=== PATIENT | female | born 1975 | race Caucasian/White ===

== ENCOUNTER 2024-08-13 06:23 | Day surgery (SDC) | payer BC, SELFPAY | END 2024-08-13 16:05 | disposition home or self-care (01) | LOC: GI 06:23 | PROVIDERS: ATTENDING PHYSICIAN Internal Medicine Gastroenterology | DX: K57.30 Diverticulosis of large intestine without perforation or abscess without bleeding (principal); D12.8 Benign neoplasm of rectum; D50.0 Iron deficiency anemia secondary to blood loss (chronic); K92.1 Melena; K64.8 Other hemorrhoids; K44.9 Diaphragmatic hernia without obstruction or gangrene; R12 Heartburn | CPT/HCPCS: 45380; 43239; 88305 ==

== ENCOUNTER → 2024-11-07 07:57 | Outpatient (REF) | payer BC, SELFPAY | LOC: RAD 07:57 | PROVIDERS: ATTENDING PHYSICIAN Internal Medicine Gastroenterology; FAMILY PHYSICIAN Internal Medicine | DX: R10.11 Right upper quadrant pain (principal) | CPT/HCPCS: 78227; A9537; J2805 ==

== ENCOUNTER 2025-05-14 12:38 | Inpatient (IN) | payer BC, SELFPAY ==
[2025-05-13 14:43] VITALS: BP 151/78
--- NOTE | 2025-05-13 15:34 | ED.GENMED ---
History of Present Illness
General
Chief Complaint: Abdominal Pain
Source: patient
Exam Limitations: none
Time Seen by Provider: 05/13/25 15:25
History of Present Illness
History of Present Illness:
49-year-old female severe epigastric pain severe esophageal/epigastric pain with swallowing. Weight loss. Some chest pain at times. Some difficulty swallowing at times. Had a CT of her abdomen and pelvis and head last week that was negative.
Has had ongoing GI issues for a while but nothing to this degree and this feels different.
Past History
Past History
ED Past Medical History: Psychiatric (Anxiety) and Other (Tachycardia)
Review of Systems
Review of Systems
Constitutional: Reports weight loss; Denies fever
Respiratory: Denies trouble breathing
Cardiac: Reports chest pain
Phy Exam
Physical Exam
Physical Exam:
GENERAL: Alert and oriented in no apparent distress
EYE: Orbits normal.
NECK: Supple, no significant adenopathy.
ENT: Pharynx without erythema
CARDIAC: Regular rate and rhythm without any obvious murmurs.
LUNGS: Clear breath sounds,normal
ABDOMEN: Soft, mild epigastric tenderness. No rebound or guarding no mass or hernia. Thin and cachectic.
NEUROLOGICAL: Alert and oriented , grossly non-focal
SKIN: Warm and dry, no rash or lesion, no discoloration, skin intact.
MUSCULOSKELETAL: No edema,no deformity.Good color
PSYCH: Cooperative but anxious and upset
Course
Orders/Labs/Results
Orders:
Orders
05/13/25 14:33
Electrocardiogram (*1) Urgent
Reason for Study: Bradycardia / Tachycardia
EKG- Treatment ONCE
05/13/25 14:55
Test Result ONCE
05/13/25 15:33
IV Insert/Care/Rem.- Treatment PRN
0.9% Sodium Chloride 500 ml [Nss] 500 ml IV BOLUS
05/13/25 15:46
Complete Blood Count/With Diff Urgent
Comprehensive Metabolic Panel Urgent
HCG, Serum Qualitative Screen Urgent
Comment: Notify provider if positive test present
Lipase Urgent
TSH Urgent
Comment: ADD ON
Troponin I Urgent
05/13/25 16:00
Acetaminophen [Tylenol] 650 mg PO Q4HPRN PRN
Mag Hydrox/Al Hydrox/Simeth [Maalox] 30 ml PO Q6HPRN PRN
05/13/25 16:25
Osmolality, Random Urine Urgent
Date Specimen was Collected: 05/13/25
Time Specimen was Collected: 14:55
Comment: ADD ON
Urinalysis Reflex To Culture Urgent
Date Specimen was Collected: 05/13/25
Time Specimen was Collected: 14:55
Urine Microscopic Reflex Cult Urgent
Urine Sodium Urgent
Date Specimen was Collected: 05/13/25
Time Specimen was Collected: 14:55
Comment: ADD ON
05/13/25 16:32
Pantoprazole [Protonix IV] 40 mg IV NOW STA
05/13/25 17:07
Admit/Transfer Patient As Directed
Co-Sign Provider:
Level of Care: Observation services
Assign to:: Medical/Surgical
Physician / Group: Micheal Hager
Diagnosis: abdominal pain
Code Status As Directed
Resuscitation Status: Full Code
PRN Pain Medication Management As Directed
May give lesser potent ordered pain med per pt: Yes
preference::
Protocol:: Medication orders for pain may be administered in a
manner that supports deferring to patient preference
when the pt is:
- Requesting an ordered lesser potent pain medication.
Least to most potent pain medications are defined
as: acetaminophen < NSAID < tramadol < opioids
(morphine, oxycodone, hydromorphone).
- Requesting a lesser dose of the same medication IF
ORDERED.
- Requesting a less intrusive route of administration
if both routes are prescribed by the provider (PO <
IV).
05/13/25 18:00
Enoxaparin Sodium [Lovenox] 40 mg SC QPM
05/13/25 18:22
GASTROINTESTINAL CONSULT Routine
Consulting Provider: Nataliia Storey
Was physician already notified: Yes
Activity As Directed
Activity Level: Ambulate
Intake/ Output As Directed
Frequency: Per unit guidelines
Vital Signs As Directed
Frequency: Per unit guidelines
Weight As Directed
Frequency: Once
Comment: on admission
DX Deep Vein Thrombosis Video Routine
05/13/25 20:00
Sucralfate [Carafate] 1 gram PO BID
Verapamil [Isoptin] 40 mg PO BID
05/14/25 Breakfast
Regular
At Your Request: Full Participation
Basic Metabolic Panel IN AM
05/14/25 08:00
Escitalopram Oxalate [Lexapro] 5 mg PO DAILY
Abnormal Lab Results
05/13/25 05/13/25
15:46 16:25
MCH 32.0 H pg
(27.0-31.0)
Absolute Neuts (auto) 7.8 H 10^3/uL
(1.4-6.5)
Absolute Lymphs (auto) 1.0 L 10^3/uL
(1.2-3.4)
Absolute Monos (auto) 0.7 H 10^3/uL
(0.1-0.6)
Neutrophils % 81.1 H %
(42.2-75.2)
Lymphocytes % 10.4 L %
(20.5-51.1)
Sodium 128 L mmol/L
(135-145)
Chloride 96 L mmol/L
(98-107)
Creatinine 0.5 L mg/dL
(0.6-1.0)
Urine Ketones 3+ A
(Negative)
Ur Occult Blood Reflex 2+ A
(Negative)
Urine Bacteria (Reflex) Few A
(Negative)
Urine Osmolality 89 L mOsm/kg
(300-900)
Urine Sodium 8 L mmol/L
(30-90)
05/13/25 15:46
05/13/25 15:46
Vital Signs
Initial and Last Documented VS:
Initial Vital Signs
Temp Pulse Resp BP Pulse Ox
98.7 F 78 18 151/78 99
05/13/25 14:43 05/13/25 14:43 05/13/25 14:43 05/13/25 14:43 05/13/25 14:43
Last Documented Vital Signs
Temp Pulse Resp BP Pulse Ox
98.2 F 73 16 143/87 100
05/13/25 18:26 05/13/25 19:38 05/13/25 18:26 05/13/25 19:38 05/13/25 18:26
MDM/Problems Addressed
Differential Diagnosis Includes:
Patient describing epigastric pain esophageal like pain. Highly doubt cardiac although will check EKG and troponin. CT scan of the last week was unremarkable. No need for emergent radiologic testing. HIDA scan last year was unremarkable.
Patient is clearly not comfortable going home. I will discuss with hospitalist and GI with plans to admit for further workup.
*Pulse Oximetry
SaO2: 99
Oxygen Mode of Delivery: Room air
Patient hypoxic: no
*EKG
Interpreted by ED Provider?: Yes
Interpretation: normal
Comparison EKG: no comparison EKG present
Heart Rate: 67
Rate: normal
Rhythm: sinus
[place]: normal axis
Interval: normal interval
QRS Pattern: normal QRS
Ischemia: no ischemia
*Critical Care Note
Total Time (30-74mins, 75-104mins- exclusive of procedures): Not Applicable
Update Note
Update Note:
Mild hyponatremia. Labs are stable otherwise. Etiology of patient's symptoms not definitive at this time. Would suspect gastritis ulcer or reflux. Patient is very frustrated and not comfortable going home for outpatient workup at this time.
Discussed with GI and hospitalist
ED Attending Note
-
Portions of this chart may have been created with voice recognition software.� Occasional wrong word or��sound alike� substitutions may have occurred due to the inherent limitations of voice recognition software.
Discharge Plan
Departure
Patient Disposition: Admit
Date of Disposition: 05/13/25
Time of Disposition: 16:32
Presentation/result/management discussed w/ accepting MD/DO: gi
Discharge Problem:
Progressive epigastric pain/weight loss
Interventions
Interventions:
*Risk Screen - Suicide Last Done: 05/13/25 14:43
*Neglect/Abuse Screening Last Done: 05/13/25 14:43
*Nursing Disposition Last Done: 05/13/25 18:30
MX-Rxpxfc-Qitwcnppxn Assessment Last Done: 05/13/25 15:45
Discharge Date and Time
Discharge Date/Time: 05/13/25 18:30
[2025-05-13] MEDS: NSS 500 IV (15:44)
[2025-05-13 15:52] LABS: Hematocrit 40.1 % (37.0-47.0); Hemoglobin 14.0 g/dL (12.0-16.0); Mean Corp Hgb Conc. 34.9 g/dL (33.0-37.0); Mean Corpuscular Volume 91.6 fL (81.0-99.0); Nucleated Red Blood Cells % 0 %; Platelet Count 213 10^3/uL (130-400); Red Cell Dist. Width 11.8 % (11.5-14.5)
[2025-05-13 16:07] LABS: HCG, Serum Qualitative Screen Negative
[2025-05-13 16:16] LABS: Troponin I < 0.012 ng/ml
[2025-05-13 16:23] LABS: ALT (SGPT) 20 U/L (0-35); AST (SGOT) 20 U/L (14-36); Albumin 4.6 g/dl (3.5-5.0); Alkaline Phosphatase 58 U/L (38-126); Blood Urea Nitrogen 8 mg/dl (7-17); Calcium 9.4 mg/dl (8.4-10.2); Carbon Dioxide 24 mmol/L (22-30); Chloride 96 mmol/L (98-107); Glucose 95 mg/dl (70-99); Lipase 99 U/L (23-300); Potassium 3.9 mmol/L (3.5-5.1); Sodium 128 mmol/L (135-145); Total Protein 7.7 g/dl (6.3-8.2); eGFR > 60.00
--- NOTE | 2025-05-13 16:34 | HPS.HSE ---
Family Physician
-
Family Physician: Jia Mancini
Chief Complaint
-
severe epigastric pain
History of Present Illness
Patient is a 49-year-old female with past medical history significant for rheumatoid arthritis, esophageal dysphagia, hiatal hernia, GERD, iron deficiency anemia, tachycardia and Hx bladder cancer who presented to [facility] ED for evaluation of severe
epigastric pain that radiates to both side under ribs, feeling of fullness and burning. She reports that she was seen in [address] last week with no significant findings (patient presented CT head and CT Abd/pel reports with no significant
findings). She stated there has been no improvement and symptoms have gradually worsened and she sees GI here at [place] so elected to come for evaluation because GI out patient workup appoints are too far out. Symptoms started around
05/04/25-05/05/25. She reports a 7 pound weight loss in the past week. PO intake of meals has been minimal does report an increase in fluids as tolerated. She reports intermittent tachycardia and palpitations. Denies any fever, chills, cough,
shortness of breath, nausea, vomiting, constipation, diarrhea or urinary symptoms.
Medical History
Past Medical History
Past Medical History: Reports Other
Additional Past Medical History:
rheumatoid arthritis
esophageal dysphagia
hiatal hernia
GERD
tachycardia
depression
iron deficiency anemia
Hx bladder cancer
Past Surgical History: Reports Other
Additional Past Surgical History:
bladder cancer tumor extraction
Social History
Tobacco: Non-smoker
Alcohol: None
Drug: None
Personal:
Living: With Family
Employment: Employed
Family History
Family History: Other (Father: esophagitis bladder and prostate cancer )
Allergies / Home Medications
Allergies reflects when Allergies were last updated in [employer].
Home Medications with original date entered in [employer]
Allergy/Medication List:
Allergies
Allergy/AdvReac Type Severity Reaction Status Date / Time
Sulfa (Sulfonamide Allergy Unknown Verified 05/13/25 14:43
Antibiotics)
Home Medications
escitalopram oxalate 5 mg tablet (Lexapro) 5 mg PO DAILY 05/13/25
sucralfate 1 gram tablet (Carafate) 1 g PO BID 05/13/25
verapamil 40 mg tablet 40 mg PO BID 05/13/25
Review of Systems
-
History Source: Patient
Constitutional: Reports Weight Loss (unintentional 7 pounds in 1 week ); Denies Fever or Chills
EENT: Denies Sore Throat
Respiratory: Denies Cough, Hemoptysis or Trouble Breathing
Cardiac: Reports Palpitations; Denies Chest Pain, Diaphoresis or Syncope
Abdomen/GI: Reports Abdominal Pain; Denies Nausea, Vomiting, Diarrhea or Constipated
: Denies Dysuria or Frequency
Musculoskeletal: Denies Joint Pain or Joint Swelling
Skin: Denies Rash
Neurological: Denies Dizzy, Headache or Weakness
Endocrine: Denies Polyuria or Polydipsia
Physical Exam
Vital Signs
Vital Signs
Temp Pulse Resp BP Pulse Ox
98.7 F 78 18 151/78 99
05/13/25 14:43 05/13/25 14:43 05/13/25 14:43 05/13/25 14:43 05/13/25 15:37
Physical Exam
General: Well Developed, No Apparent Distress, Conversant and Other (thin in appearance )
HEENT: NormoCephalic, Moist mucous membranes, Nose Appears Normal and Ears Appear Normal
Respiratory: Clear and Non Labored Respirations; No Wheezes, Rales, Rhonchi or Crackles
Cardiac: S1/S2 and Regular Rhythm; No Murmur, Rub or Gallop
GI: Soft, Non Distended, Normal Bowel Sounds, Tender (mild upper abdominal tenderness ), No Hepatosplenomegaly, No Hernias and Other (thin in appearance )
Musculoskeletal: No Clubbing, No Cyanosis and No Edema
Skin: Warm and IV/Catheter Site
Neuro: Awake and AO x 3
Hematologic/Lymphatic: No Lymphadenopathy
Psych: Calm
Laboratory Results
-
05/13/25 15:46
05/13/25 15:46
Laboratory Results
Total Bilirubin 0.7 mg/dl (0.2-1.3) 05/13/25 15:46
AST 20 U/L (14-36) 05/13/25 15:46
ALT 20 U/L (0-35) 05/13/25 15:46
Alkaline Phosphatase 58 U/L (38-126) 05/13/25 15:46
Troponin I < 0.012 ng/ml 05/13/25 15:46
Lipase 99 U/L (23-300) 05/13/25 15:46
Data Reviewed
-
Medical Tests (Nuc Med, Echo, EKG etc): Report Reviewed by me (EKG: NORMAL SINUS RHYTHM MINIMAL VOLTAGE CRITERIA FOR LVH, MAY BE NORMAL VARIANT ( Sokolow-Diaz ))
Lab Data: Labs Reviewed by me (Na+ 128)
Impression/Plan
-
IMPRESSION/PLAN:
#severe epigastric pain that radiates to both side under ribs, feeling of fullness and burning 2/2 esophagitis vs. hiatal hernia vs. food impaction vs. cardiac in nature
trop <0.012
EKG: NORMAL SINUS RHYTHM
MINIMAL VOLTAGE CRITERIA FOR LVH, MAY BE NORMAL VARIANT ( Sokolow-Diaz )
- Admit to med/surg for observation
- Consult GI
- IVF NSS 80cc/hr
- supportive care
#hyponatremia
Na+ 128
patient reports increased fluid intake r/t decreased food intake
- check urine sodium and osmo
- monitor BMP
#tachycardia
- continue verapamil
#depression
- continue escitalopram
Code status: full code
DVT prophylaxis: Lovenox sq
[2025-05-13 16:49] LABS: Urine Character Clear (Clear)
[2025-05-13] MEDS: PROTONIX IV 40 MG IV (16:55)
[2025-05-13 17:04] LABS: Urine Red Blood Cell 0-2 /HPF (0-2); Urine White Cell 0-2 /HPF (0-5)
--- NOTE | 2025-05-13 17:12 | W.PN.UPDATE ---
Update Note
Progress Note Update
This note serves as an addendum to the H&P by cake mixer JEFFERSON�
Rose Marie Dyson
HPI
49F HX Anxiety , just started on Lexapro,
- pw severe epigastric pain
- severe esophageal/epigastric pain with swallowing
- Weight loss.
- Some difficulty swallowing at times.
- Had a CT of her abdomen and pelvis and head last week that was negative.
- Has had ongoing GI issues for a while but nothing to this degree and this feels different.
PHX
Relevant VS
Temp Pulse Resp BP Pulse Ox
98.7 F 78 18 151/78 99
05/13/25 14:43 05/13/25 14:43 05/13/25 14:43 05/13/25 14:43 05/13/25 15:37
PE
GENERAL: Alert and oriented in no apparent distress
NECK: Supple, no significant adenopathy.
ENT: Pharynx without erythema
CARDIAC: Regular rate and rhythm without any obvious murmurs.
LUNGS: Clear breath sounds,normal
ABDOMEN: Soft, mild epigastric tenderness. No rebound or guarding no mass or hernia. Thin and cachectic.
NEUROLOGICAL: Alert and oriented , grossly non-focal
MUSCULOSKELETAL: No edema,no deformity.Good color
PSYCH: Cooperative but anxious and upset
Relevant Data
05/13/25
15:46
WBC 9.6
Hgb 14.0
Plt Count 213
Sodium 128 L
Chloride 96 L
Creatinine 0.5 L
eGFR > 60.00
AST 20
ALT 20
Alkaline Phosphatase 58
11/07/24 NM Hepatobiliary (hida) W/ Cck
Normal HIDA scan without evidence of acute cholecystitis, complete CBD obstruction, or biliary dyskinesia.
Last hospitalist admission:
ASSESSMENT & PLAN
Subjective subacute epigastric pain, subjective odynophagia, intermittent dysphagia
- Increase in severity
- Weight loss 17 lbs ?
- Reports unremarkable CT AP lasst week @ OSH .
- Has had ongoing GI issues for a while
- GI consult
Hyponatremia
- report drinks a lot
- TSH, Ur Na and Ur Osm
- IV NS and trend Na
HX Anxiety
- recently started on Lexapro
DVT Px: SCD
Full code
OBS MS
--- NOTE | 2025-05-13 17:42 | EDCM ---
CM reviewed chart and met with pt bedside in ED. Lives with her in 2 story home, [address], first floor half bath, full flight tyo second floor bedroom and full bath.
Independent in ADLs, personal care and ambulation at baseline, no assistive devices, no DME.
OBS form reviewed and signed.
Confirms prescription coverage.
PCP: Jia Mancini
Pharmacy: [facility]
Anticipate discharge home, CM will continue to follow for any discharge planning needs.
--- NOTE | 2025-05-13 18:14 | EDRN ---
Diet order processed from admission orders. Tech reports cafe will not fill order. No boxed lunches available. Pt to be ytransported to floor.
[2025-05-13 18:25] VITALS: BMI 19.5
[2025-05-13 18:26] VITALS: BP 143/87
[2025-05-13 18:38] LABS: TSH 1.47 uIU/ml (0.47-4.68)
[2025-05-13] MEDS: NSS 1000 IV (19:05)
[2025-05-13] MEDS: ISOPTIN 40 MG PO (19:38)
[2025-05-13] MEDS: CARAFATE 1 GRAM PO (19:38)
[2025-05-13 23:00] VITALS: BP 119/79
[2025-05-14] MEDS: NSS 1000 IV ×2 (07:32→21:17)
[2025-05-14] MEDS: LEXAPRO PO (07:33)
[2025-05-14] MEDS: CARAFATE 1 GRAM PO ×2 (07:33→20:30)
[2025-05-14] MEDS: ISOPTIN 40 MG PO ×2 (07:36→20:40)
[2025-05-14 07:41] VITALS: BP 131/84
[2025-05-14 07:56] LABS: Blood Urea Nitrogen 6 mg/dl (7-17); Calcium 8.9 mg/dl (8.4-10.2); Carbon Dioxide 25 mmol/L (22-30); Chloride 104 mmol/L (98-107); Estimated Creatinine Clearance 93 ml/min; Glucose 78 mg/dl (70-99); Potassium 4.0 mmol/L (3.5-5.1); Sodium 135 mmol/L (135-145); eGFR > 60.00
--- NOTE | 2025-05-14 08:00 | W.PN.HOSP.TC ---
Today's Communication/Plan
-
f/u EGD per GI
IV Cftx for UTI
[facility] records requested
Assessment / Plan
Assessment / Plan
49-year-old female with past medical history of hiatal hernia, GERD, rheumatoid arthritis, palpitations, anxiety, hepatic steatosis, iron deficiency anemia from menorrhagia, bladder cancer in her 20s (in remission, s/p surgical resection), chronic
constipation, SIBO, chronic abdominal pain with extensive workup in the past including negative HIDA scan with CCK, capsule endoscopy, colonoscopy August 2024, endoscopy August 2024, CT of the abdomen pelvis with oral and IV contrast 05/2024,
repeat CT scan 05/06/2025 ([facility]), high-resolution manometry in 2018 at [facility], cardiac workup with Dr. Adorno also negative (was due for follow-up appointment today) who presented to the ED with burning epigastric pain, also a
gnawing type epigastric discomfort, worst with solid foods, and a 7lb weight lost in one week.
#Epigastric pain
#Intolerance of solid foods
She follows with Dr. Allison at [facility]. Records from [facility] requested.
- Speech consulted, swallow eval appreciated
- IVF
- GI following,
-- EGD today
-- Plan on gastric emptying scan tomorrow
-- Continue pantoprazole
-- Further recommendations to be forthcoming
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
Na 128 on admission. 135 today. Urine NA and Osm low. Patient reports increased fluid intake r/t decreased food intake. 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
- CTM
#UTI
Dysuria, UAx2 with 1+ leuk est, ketones.
- IV Ceftriaxone 1g
#Tachycardia, chronic
- Continue verapamil 40mg BID
#Depression
- Continue escitalopram 5mg daily
Code status: Full Code
DVT prophylaxis: Lovenox sq
Anticipated Discharge: 24 - 48 hours
Subjective/Interval History
-
Date of Service: May 14, 2025
- This morning, still endorsing epigastric pain and solid food dysphagia. Speech consulted.
- She also notes white coating on her tongue for a week and dry mouth.
Objective Data
-
Labs:
Laboratory Results
05/14/25
07:14
Sodium 135
Potassium 4.0
Chloride 104
Carbon Dioxide 25
BUN 6 L
Creatinine 0.5 L
Glucose 78
Calcium 8.9
Vital Signs:
Vital Signs
Temp Pulse Resp BP Pulse Ox
99.4 F 80 14 131/84 98
05/14/25 07:41 05/14/25 07:41 05/14/25 07:41 05/14/25 07:41 05/14/25 07:41
I&O
05/13/25 05/14/25 05/15/25
06:59 06:59 06:59
Intake Total 720 / 720
Balance 720 / 720
Physical Exam
-
General: Well Developed, Well Nourished, No Apparent Distress, Comfortable and Conversant
HEENT: Normocephalic, Atraumatic, Moist Mucous Membranes and Thrush
Respiratory: Clear to Auscultation
Cardiac: Regular Rhythm
GI: Soft, Nondistended and Tender (TTP epigastric area)
Musculoskeletal: No Clubbing and No Cyanosis
Skin: Warm and Dry
Neuro: AO x 3
Psych: Calm and Intact Judgement/Insight
--- NOTE | 2025-05-14 08:40 | W.PN.UPDATE ---
Update Note
Progress Note Update
I saw and evaluated the patient with the residents.
HPI: 49-year-old female with past medical history significant for rheumatoid arthritis, esophageal dysphagia, hiatal hernia, GERD, iron deficiency anemia, tachycardia, Hx bladder cancer; who presented to [facility] ED for evaluation of severe epigastric
pain with heartburn sensation.
She reported that she was seen in [address] last week with no significant findings (patient had CT head and CT AP with no significant findings). She stated there has been no improvement and symptoms have gradually worsened and she sees GI here
at [place] so elected to come for evaluation because GI outpatient workup appoints are too far out.
Symptoms started around 05/04/25 - 05/05/25. She reports a 7 pound weight loss in the past week. PO intake of meals has been minimal, does report an increase in fluids as tolerated. She reports intermittent tachycardia and palpitations.
A/P:
# severe epigastric pain with heartburn sensation, ddx include esophagitis vs known hiatal hernia vs food impaction vs others
less likely cardiac with negative troponin (< 0.012) and EKG unrevealing
GI on board, with plan for EGD today
cont gentle IVF NSS 80cc/hr while NPO
supportive care
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
Urine Osm and sodium levels low
Na improved from 128 to 135 with gentle IVF
NPO for now until eval by GI
Follow BMP
# Dysuria, possible UTI
Pt would like to check repeat UA before initiating Abx
# Tachycardia, resolved
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
# Depression
continue [employer] escitalopram
Code status: full code
DVT prophylaxis: Lovenox sq
total time 51 min
--- NOTE | 2025-05-14 08:48 | CON.GI ---
Addendum entered and electronically signed by Nataliia Storey MD 05/14/25 16:50:
I saw and examined the patient.
The RECREATIONAL LEADER or PA's note was reviewed and I agree with the note.
Comment: Brie is a 49-year-old female with history of GERD rheumatoid arthritis, bladder cancer, chronic constipation with previous extensive GI workup known to Dr. Allison who is presenting with abdominal discomfort with burning pain in the
chest and throat area, apart from gnawing discomfort in the upper abdomen going on for the past couple of weeks. She describes it as burning pain, nausea and not able to eat solid food due to the burning and has to pur�e her food. Reports
regurgitation, sour taste in the mouth, sore throat. No trouble swallowing solid food but when she has liquid foods, she feels like it is not going down. She has had intermittent symptoms for several years, she has had upper endoscopy in August
2024 that was unremarkable. She has not been taking PPI but uses Pepcid and Carafate with limited improvement in symptoms. She had HIDA scan with CCK October [address]24 that [address] scan of the abdomen and pelvis just done at [facility] early May, report at this time not available to review. Previous CT scan in May 2024 with oral and IV contrast that was unremarkable. She has chronic constipation and takes MiraLAX to help with that which seems to be
helping. No blood in the stool or black stool. Lost 7 pounds in the last couple of weeks. CMP, CBC 05/14/2025 unremarkable.
Upper endoscopy 05/14/2025 again no significant findings. Biopsies taken from the stomach and esophagus to rule out H. pylori and eosinophilic esophagitis.
-Upper abdominal pain of unclear etiology, no evidence of esophagitis, ulcer disease, gallbladder disease
Cannot rule out hypersensitivity of the esophagus, patient did not want to try Lexapro though prescribed by PCP.
At this time continue pantoprazole 40 mg daily in the morning, okay to take sucralfate 1 g twice a day, Pepcid at night if need be.
Will do gastric emptying study tomorrow to rule out gastroparesis.
Clear liquid diet for today and n.p.o. past midnight for gastric emptying study.
Will follow during hospital visit and she can follow-up as outpatient with Dr. Allison after discharge.
Original Note:
Consultation
-
Date/Time Consultation Requested: 05/13/251821
Date/Time Consultation Performed: 05/14/25829
Requesting Provider: MAIKOL Morgan
Performing Provider: Dr. Storey/MAIKOL Kay
Reason for Consultation: epigastric pain, dysphagia
Medical History
Chief Complaint / HPI
Chief Complaint: epigastric pain
History of Present Illness:
49-year-old female with past medical history of hiatal hernia, GERD, bladder cancer, rheumatoid arthritis, palpitations, anxiety, hepatic steatosis, iron deficiency anemia from menorrhagia, chronic constipation, SIBO, chronic abdominal pain with
extensive workup in the past including negative HIDA scan with CCK, capsule endoscopy, colonoscopy August 2024, endoscopy August 2024, CT of the abdomen pelvis with oral and IV contrast 05/2024, repeat CT scan 05/06/2025 ([facility]),
high-resolution manometry in 2018 at [facility], cardiac workup with Dr. Adorno also negative(was due for follow-up appointment today) who presents to the emergency room with burning epigastric pain, also a gnawing type epigastric discomfort. Worse
with solid foods. She states that she has been pur�eing her foods as this makes her digestion improved. She states that even despite this she still has epigastric discomfort. She states she has pains on both sides just under her rib cage. She
states that water and even liquids are getting stuck in her esophagus. This is also causing her severe pain. Her last bowel movement was yesterday that was soft and formed. She is using MiraLAX for bowel movements 1 capful daily. She is using
Carafate 1 g twice daily as well as Pepcid as needed. She was started on Lexapro 5 mg 3 days ago for anxiety by her PCP. In the past she was hesitant to start a PPI back in March as she thought it would 'slow her digestion down'. She was seen at
[facility] on 05/06/2025 in the emergency room. She states that she was given a CT of her head as well as a CT of the abdomen and pelvis. I have reviewed the copies that she had that were both unremarkable. We will obtain the full
records. She had outpatient stool studies that were negative. She complains of feeling slightly feverish. She has lost 7 pounds in 1 week. She denies any vomiting but is spitting up a 'foamy type material'. She denies any melena or
hematochezia. She states her bowel movements are a light brown/yellow color. WBC 9.6, hemoglobin 14.0, hematocrit 40.1, platelets 213, sodium 135 (up from 128), potassium 4.0, BUN 6, creatinine 0.5, glucose 78, total bilirubin 0.7, AST 20, ALT 20,
alk phos 58, troponin less than 0.012, albumin 4.6, lipase 99, TSH 1.47, hCG negative, UA positive for ketones, occult blood few bacteria, urine sodium low. No imaging. Of note patient is refusing her Lexapro and Lovenox.
Past Medical History
Past Medical History: Other (Hiatal hernia, GERD, bladder cancer, rheumatoid arthritis, palpitations, anxiety, hepatic steatosis, iron deficiency anemia from menorrhagia, chronic constipation, SIBO, chronic abdominal pain)
Past Surgical History: Other (None)
Social History
Tobacco: Non-Smoker
Alcohol: Occasional
Drug: None
Personal:
Living: With Family
Family History
Family History: Other (Father prostate cancer, bladder cancer, mother cervical cancer. No family history of gastrointestinal malignancy or IBD)
Allergies / Home Medications
Allergy/AdvReac Type Severity Reaction Status Date / Time
Sulfa (Sulfonamide Allergy Unknown Verified 05/13/25 14:43
Antibiotics)
�Medication �Instructions �Recorded
escitalopram oxalate 5 mg tablet 5 mg PO DAILY Mental Health/Anxiety 05/13/25
(Lexapro)
sucralfate 1 gram tablet (Carafate) 1 g PO BID Gastrointestinal Issue 05/13/25
verapamil 40 mg tablet 40 mg PO BID Blood Pressure 05/13/25
Review of Systems
-
All other systems: A 12 pt ROS was Negative except as stated above in HPI
Vital Signs
Temp Pulse Resp BP Pulse Ox
99.4 F 80 14 131/84 98
05/14/25 07:41 05/14/25 07:41 05/14/25 07:41 05/14/25 07:41 05/14/25 07:41
Physical Exam
Exam
General: No Apparent Distress
HEENT: Normocephalic
Respiratory: Clear
Cardiac: Regular Rhythm
GI: Soft, Non Distended, Normal Bowel Sounds and Tender (Mild epigastric tenderness)
Skin: Warm and Dry
Neuro: AO x 3
Psych: Calm
Results
WBC 9.6 10^3/uL (4.8-10.8) 05/13/25 15:46
Hgb 14.0 g/dL (12.0-16.0) 05/13/25 15:46
Hct 40.1 % (37.0-47.0) 05/13/25 15:46
MCV 91.6 fL (81.0-99.0) 05/13/25 15:46
Plt Count 213 10^3/uL (130-400) 05/13/25 15:46
Absolute Neuts (auto) 7.8 10^3/uL (1.4-6.5) H 05/13/25 15:46
Sodium 135 mmol/L (135-145) 05/14/25 07:14
Potassium 4.0 mmol/L (3.5-5.1) 05/14/25 07:14
Chloride 104 mmol/L (98-107) 05/14/25 07:14
Carbon Dioxide 25 mmol/L (22-30) 05/14/25 07:14
BUN 6 mg/dl (7-17) L 05/14/25 07:14
Creatinine 0.5 mg/dL (0.6-1.0) L 05/14/25 07:14
Calcium 8.9 mg/dl (8.4-10.2) 05/14/25 07:14
Total Bilirubin 0.7 mg/dl (0.2-1.3) 05/13/25 15:46
AST 20 U/L (14-36) 05/13/25 15:46
ALT 20 U/L (0-35) 05/13/25 15:46
Alkaline Phosphatase 58 U/L (38-126) 05/13/25 15:46
Lipase 99 U/L (23-300) 05/13/25 15:46
Diagnostic Image Results:
None this admission
Prior GI Procedures:
COLO 08/13/2024 (Dr. Bragg) - The examined portion of the ileum was normal.
- Diverticulosis in the sigmoid colon.
- Two 2 mm polyps in the rectum, removed with a jumbo
cold forceps. Resected and retrieved.
- Internal hemorrhoids.
EGD 08/13/24: - Normal esophagus.
- Small hiatal hernia.
- Normal examined duodenum. Biopsied.
Assessment / Plan
-
49-year-old female with past medical history of hiatal hernia, GERD, bladder cancer, rheumatoid arthritis, palpitations, anxiety, hepatic steatosis, iron deficiency anemia from menorrhagia, chronic constipation, SIBO, chronic abdominal pain with
extensive workup in the past including negative HIDA scan with CCK, capsule endoscopy, colonoscopy August 2024, endoscopy August 2024, CT of the abdomen pelvis with oral and IV contrast 05/2024, repeat CT scan 05/06/2025 ([facility]),
high-resolution manometry in 2018 at [place] normal, cardiac workup with Dr. Adorno also negative(was due for follow-up appointment today) who presents to the emergency room with burning epigastric pain, also a gnawing type epigastric discomfort. Worse
with solid foods. She states that she has been pur�eing her foods as this makes her digestion improved. She states that even despite this she still has epigastric discomfort. She states she has pains on both sides just under her rib cage. She
states that water and even liquids are getting stuck in her esophagus. This is also causing her severe pain. Patient with loss of 7 pounds during this week. Presents with hyponatremia. Ketones in urine. Decreased ability to eat.
Impression:
Epigastric pain
Dysphagia/odynophagia
Chronic abdominal pain
Weight loss
Hyponatremia-> resolved
Plan:
- EGD today
- Plan on gastric emptying scan tomorrow
- Continue pantoprazole
- Further recommendations to be forthcoming
-
-
Thank you for consultation and allowing me to participate in the patient's care. Please call the pc installation engineer GI physician during the after hours with any questions or concerns.
--- NOTE | 2025-05-14 10:52 | CM ---
Patient seen at bedside on . Patient with no needs identified at this time. CM will continue to follow for discharge planning needs.
Plan; home with no needs identified at this time.
[2025-05-14 12:35] LABS: Urine Character Clear (Clear)
[2025-05-14 12:54] VITALS: BP 131/78; BP_SYST 18
[2025-05-14 13:09] VITALS: BP 123/81; BP_SYST 18
[2025-05-14 13:17] LABS: Urine Squamous Cell 0-2 /LPF (Few)
[2025-05-14 13:18] LABS: Urine Red Blood Cell 0-2 /HPF (0-2)
[2025-05-14] MEDS: MYCOSTATIN ORAL SUSPENSION 5 ML PO ×3 (13:20→20:30)
[2025-05-14] MEDS: STERILE WATER FOR INJECTION 10 ML IV (13:57)
[2025-05-14] MEDS: ROCEPHIN 1000 MG IV (13:57)
[2025-05-14 15:34] VITALS: BP 129/76
[2025-05-14] MEDS: ALPRAZOLAM ODT 0.25 MG PO (15:38)
--- NOTE | 2025-05-14 16:16 | PTOTSP ---
Speech Therapy Evaluation:
Pt presents with suspected esophageal > pharyngeal dysphagia with hx of RA, esophageal dysphagia, GERD, and hiatal hernia with current complaints of severe epigastric pain, early satiety, weight loss, solid and liquids feeling stuck in esophagus,
and needing to puree food for increased comfort. At bedside, no overt pharyngeal difficulty or signs/symptoms of aspiration across PO trials. Pt did endorse 'a little' globus sensation with cracker. EGD completed today with no gross lesions, regular
Z line, normal duodenum, and patchy mildly erythematous mucosa. Pathology results pending. Pt scheduled for gastric emptying scan 05/15.
Recommend:
1. Regular solids and thin liquids with softer selections per pt preference/tolerance from a speech standpoint, however recommend diet per GI/MD
2. Meds as tolerated
3. Strategies: Moisten foods, small bites/sips, slow rate, alternate solids and liquids, upright all meals, upright 60 minutes following PO intake
4. Strict aspiration and reflux precautions
5. COMMUNICATIONS SUPERVISOR to follow to monitor tolerance of diet and provide ongoing education in aspiration and reflux precautions
[2025-05-14] MEDS: PEPCID 20 MG PO (20:30)
[2025-05-14] MEDS: XANAX 0.25 MG PO (21:19)
--- NOTE | 2025-05-14 22:00 | PTCARENOTE ---
Patient tearful at times, upset she still does not have any answers as to why she is having pain. Patient reports she was able to tolerate small amounts of clear liquids. Patient received one time dose of Xanax during the day which she said helped
with anxiety. Patient starting to become notably more anxious. MAIKOL Box notified and order for Xanax 0.25mg received, see MAR. Will continue to monitor.
[2025-05-14 23:38] VITALS: BP 110/74
[2025-05-15 07:26] VITALS: BP 118/75
--- NOTE | 2025-05-15 08:46 | W.PN.HOSP.TC ---
Today's Communication/Plan
-
SCDs for DVT ppx
dc Cftx given (-) Ur Cltx
Hydroxyzine 25mg daily prn for anxiety
f/u gastric emptying scan
Assessment / Plan
Assessment / Plan
49-year-old female with past medical history of hiatal hernia, GERD, rheumatoid arthritis, palpitations, anxiety, hepatic steatosis, iron deficiency anemia from menorrhagia, bladder cancer in her 20s (in remission, s/p surgical resection), chronic
constipation, SIBO, chronic abdominal pain with extensive workup in the past including negative HIDA scan with CCK, capsule endoscopy, colonoscopy August 2024, endoscopy August 2024, CT of the abdomen pelvis with oral and IV contrast 05/2024,
repeat CT scan 05/06/2025 ([facility]), high-resolution manometry in 2018 at [facility], cardiac workup with Dr. Adorno also negative (was due for follow-up appointment today) who presented to the ED with burning epigastric pain, also a
gnawing type epigastric discomfort, worst with solid foods, and a 7lb weight lost in one week.
#Epigastric pain
#Intolerance of solid foods
She follows with Dr. Allison at [facility]. Records from [facility]'s requested.
- Speech consulted, swallow eval completed - no restrictions; low fat low residue diet per GI
- IVF
- GI following,
-- EGD 05/14 - f/u pathology: Telephone GI clinic for pathology results in 5 days.
-- F/u gastric emptying scan today
-- Continue pantoprazole 40mg PO daily; Pepcid at night
-- Carafate 1g prn up to BID
-- Follow an antireflux regimen
-- No aspirin, ibuprofen, naproxen, or other non-steroidal anti-inflammatory drugs for 5 days after biopsy
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
Na 128 on admission. 135 today. Urine NA and Osm low. Patient reports increased fluid intake r/t decreased food intake. 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
- CTM
#UTI
Dysuria, UAx2 with 1+ leuk est, ketones.
- IV Ceftriaxone 1g 05/14-05/15 - dc today, Ur Cltx neg
#Tachycardia, chronic
- Continue verapamil 40mg BID
#Depression
- Continue escitalopram 5mg daily
#Anxiety
- Hydroxyzine 25mg po daily prn
Code status: Full Code
DVT prophylaxis: SCDs
Anticipated Discharge: 24 - 48 hours
Subjective/Interval History
-
Date of Service: May 15, 2025
Objective Data
-
Labs:
Laboratory Results
05/15/25
07:24
WBC Pending
Hgb Pending
Hct Pending
Plt Count Pending
Sodium Pending
Potassium Pending
Chloride Pending
Carbon Dioxide Pending
BUN Pending
Creatinine Pending
Glucose Pending
Calcium Pending
Total Bilirubin Pending
AST Pending
ALT Pending
Alkaline Phosphatase Pending
Vital Signs:
Vital Signs
Temp Pulse Resp BP Pulse Ox
98.9 F 59 14 118/75 99
05/15/25 07:26 05/15/25 07:26 05/15/25 07:26 05/15/25 07:26 05/15/25 07:26
I&O
05/14/25 05/15/25 05/16/25
06:59 06:59 06:59
Intake Total 720 / 720 900 / 900
Balance 720 / 720 900 / 900
--- NOTE | 2025-05-15 09:21 | W.PN.UPDATE ---
Update Note
Progress Note Update
I saw and evaluated the patient with the residents.
HPI: 49-year-old female with past medical history significant for rheumatoid arthritis, esophageal dysphagia, hiatal hernia, GERD, iron deficiency anemia, tachycardia, Hx bladder cancer; who presented to [facility] ED for evaluation of severe epigastric
pain with heartburn sensation.
She reported that she was seen in [address] last week with no significant findings (patient had CT head and CT AP with no significant findings). She stated there has been no improvement and symptoms have gradually worsened and she sees GI here
at [place] so elected to come for evaluation because GI outpatient workup appoints are too far out.
Symptoms started around 05/04/25 - 05/05/25. She reports a 7 pound weight loss in the past week. PO intake of meals has been minimal, does report an increase in fluids as tolerated. She reports intermittent tachycardia and palpitations.
A/P:
# severe epigastric pain with heartburn sensation, ddx include esophagitis vs known hiatal hernia
less likely cardiac with negative troponin (< 0.012) and EKG unrevealing
s/p EGD 05/14: No gross lesions. Biopsies taken
For now clear liquid diet, then ADAT
No aspirin, NSIADs
Use Protonix 40 mg PO daily. Pepcid at night. OK to start carafate 1 gm once or twice a day for symptoms
Check gastric emptying study.
cont gentle IVF NSS 80cc/hr while NPO
supportive care
# hyponatremia likely due to psychogenic polydipsia, resolved
Urine Osm and sodium levels low
Na improved from 128 to 135 with gentle IVF
Follow BMP
# Dysuria, resolved
urine culture with mixed geovanna
DC ceftriaxone and monitor for symptoms
# Intermittent tachycardia per pt, resolved
continue ANTENNA ENGINEER verapamil
Pt describes symptoms of dysautonomia (dizziness with standing, associate with increased HR)
Check orthostatic VS
Monitor
# Depression
continue ANTENNA ENGINEER escitalopram
Code status: full code
DVT prophylaxis: Lovenox sq
total time 51 min
--- NOTE | 2025-05-15 11:58 | CM ---
Patient seen at bedside
gastric empty study
PLAN: Home, no needs when stable
[2025-05-15 12:12] LABS: Hematocrit 40.3 % (37.0-47.0); Hemoglobin 13.8 g/dL (12.0-16.0); Mean Corp Hgb Conc. 34.2 g/dL (33.0-37.0); Mean Corpuscular Volume 91.4 fL (81.0-99.0); Nucleated Red Blood Cells % 0 %; Platelet Count 192 10^3/uL (130-400); Red Cell Dist. Width 12.2 % (11.5-14.5)
[2025-05-15 12:31] LABS: Chloride 103 mmol/L (98-107)
[2025-05-15 12:32] LABS: ALT (SGPT) 17 U/L (0-35); AST (SGOT) 16 U/L (14-36); Albumin 4.1 g/dl (3.5-5.0); Alkaline Phosphatase 54 U/L (38-126); Blood Urea Nitrogen 6 mg/dl (7-17); Calcium 9.1 mg/dl (8.4-10.2); Carbon Dioxide 28 mmol/L (22-30); Estimated Creatinine Clearance 93 ml/min; Glucose 101 mg/dl (70-99); Potassium 3.6 mmol/L (3.5-5.1); Sodium 137 mmol/L (135-145); Total Protein 6.9 g/dl (6.3-8.2); eGFR > 60.00
--- NOTE | 2025-05-15 12:59 | W.PN.GI.CBS2 ---
Today's Communication / Plan
-
- Await pathology results.
OK for low fat and low residue diet as pt had sandwich for GE study and tolerated it.
Follow an antireflux regimen.
Use Protonix (pantoprazole) 40 mg PO daily. Pepcid at night. OK for carafate 1 gm once or twice a day for symptoms and space it put
from other medication by atleast 2 hours. Pt aware to space it out from other medication by 2 hours and constipation risk
- No aspirin, ibuprofen, naproxen, or other non-steroidal
anti-inflammatory drugs for 5 days after biopsy.
- Telephone GI clinic for pathology results in 5 days.
If GE study negative and pt tolerating diet, she can f/u with as OP
Assessment / Plan
-
49-year-old female with past medical history of hiatal hernia, GERD, bladder cancer, rheumatoid arthritis, palpitations, anxiety, hepatic steatosis, iron deficiency anemia from menorrhagia, chronic constipation, SIBO, chronic abdominal pain with
extensive workup in the past including negative HIDA scan with CCK, capsule endoscopy, colonoscopy August 2024, endoscopy August 2024, CT of the abdomen pelvis with oral and IV contrast 05/2024, repeat CT scan 05/06/2025 ([facility]),
high-resolution manometry in 2018 at [place] normal, cardiac workup with Dr. Adorno also negative(was due for follow-up appointment today) who presents to the emergency room with burning epigastric pain, also a gnawing type epigastric discomfort. Worse
with solid foods. She states that she has been pur�eing her foods as this makes her digestion improved. She states that even despite this she still has epigastric discomfort. She states she has pains on both sides just under her rib cage. She
states that water and even liquids are getting stuck in her esophagus. This is also causing her severe pain. Patient with loss of 7 pounds during this week. Presents with hyponatremia. Ketones in urine. Decreased ability to eat.
Impression:
Epigastric pain
Dysphagia/odynophagia
Chronic abdominal pain
Weight loss
Hyponatremia-> resolved
Plan:
- Await pathology results.
OK for low fat and low residue diet as pt had sandwich for GE study and tolerated it.
Follow an antireflux regimen.
Use Protonix (pantoprazole) 40 mg PO daily. Pepcid at night. OK for carafate 1 gm once or twice a day for symptoms and space it put
from other medication by atleast 2 hours. Pt aware to space it out from other medication by 2 hours and constipation risk
- No aspirin, ibuprofen, naproxen, or other non-steroidal
anti-inflammatory drugs for 5 days after biopsy.
- Telephone GI clinic for pathology results in 5 days.
If GE study negative and pt tolerating diet, she can f/u with as OP
Subjective
Subjective
Date of Service: May 15, 2025
c/o some discomfort and burning in the upper abdomen, jsut came back from the GE study and tolerated the sandwich without vomiting,.
Objective
Data Reviewed
Laboratory Data:
Laboratory Results
05/15/25 11:55
05/15/25 11:55
Laboratory Results
Total Bilirubin 0.3 mg/dl (0.2-1.3) 05/15/25 11:55
AST 16 U/L (14-36) 05/15/25 11:55
ALT 17 U/L (0-35) 05/15/25 11:55
Alkaline Phosphatase 54 U/L (38-126) 05/15/25 11:55
Lipase 99 U/L (23-300) 05/13/25 15:46
Vital Signs and I&O:
Vital Signs
Temp Pulse Resp BP Pulse Ox
98.9 F 59 14 118/75 99
05/15/25 07:26 05/15/25 07:26 05/15/25 07:26 05/15/25 07:26 05/15/25 12:00
I&O
05/14/25 05/15/25 05/16/25
06:59 06:59 06:59
Intake Total 720 / 720 900 / 900
Balance 720 / 720 900 / 900
Physical Exam
Physical Exam
GI: Soft, Non Distended and Non Tender
[2025-05-15] MEDS: CARAFATE 1 GRAM PO ×2 (13:17→21:53)
[2025-05-15] MEDS: LEXAPRO 5 MG PO (13:18)
[2025-05-15] MEDS: PROTONIX 40 MG PO (13:18)
[2025-05-15] MEDS: MYCOSTATIN ORAL SUSPENSION PO (13:21)
[2025-05-15] MEDS: MYCOSTATIN ORAL SUSPENSION 5 ML PO ×3 (13:22→21:55)
[2025-05-15] MEDS: ISOPTIN 40 MG PO ×2 (13:22→21:53)
[2025-05-15] MEDS: STERILE WATER FOR INJECTION IV (13:31)
[2025-05-15] MEDS: ATARAX 25 MG PO (15:27)
[2025-05-15 15:47] VITALS: BP 140/72
[2025-05-15] MEDS: NSS 1000 IV (15:55)
[2025-05-15] MEDS: MIRALAX 17 GRAMS PO (17:04)
[2025-05-15] MEDS: PEPCID 20 MG PO (21:53)
[2025-05-15] MEDS: MELATONIN 5 MG PO (21:53)
[2025-05-15 22:58] VITALS: BP 117/73
[2025-05-16] MEDS: NSS IV (04:12)
[2025-05-16 07:33] LABS: Hematocrit 38.8 % (37.0-47.0); Hemoglobin 13.4 g/dL (12.0-16.0); Mean Corp Hgb Conc. 34.5 g/dL (33.0-37.0); Mean Corpuscular Volume 91.1 fL (81.0-99.0); Platelet Count 185 10^3/uL (130-400); Red Cell Dist. Width 12.3 % (11.5-14.5)
[2025-05-16 07:52] VITALS: BP 139/89
[2025-05-16 07:53] LABS: ALT (SGPT) 16 U/L (0-35); AST (SGOT) 21 U/L (14-36); Albumin 4.3 g/dl (3.5-5.0); Alkaline Phosphatase 46 U/L (38-126); Blood Urea Nitrogen 3 mg/dl (7-17); Calcium 8.9 mg/dl (8.4-10.2); Carbon Dioxide 25 mmol/L (22-30); Chloride 104 mmol/L (98-107); Estimated Creatinine Clearance 93 ml/min; Glucose 88 mg/dl (70-99); Potassium 3.8 mmol/L (3.5-5.1); Sodium 135 mmol/L (135-145); Total Protein 7.1 g/dl (6.3-8.2); eGFR > 60.00
[2025-05-16] MEDS: CARAFATE 1 GRAM PO ×2 (08:08→21:27)
[2025-05-16] MEDS: ISOPTIN 40 MG PO ×2 (08:08→21:25)
[2025-05-16] MEDS: PROTONIX 40 MG PO (08:08)
[2025-05-16] MEDS: MYCOSTATIN ORAL SUSPENSION 5 ML PO ×4 (08:08→21:27)
[2025-05-16] MEDS: LEXAPRO 5 MG PO (08:08)
--- NOTE | 2025-05-16 08:57 | W.PN.HOSP.TC ---
Today's Communication/Plan
-
A1c wnl
Gastroparesis on gastric emptying scan
f/u GI recs
Assessment / Plan
Assessment / Plan
49-year-old female with past medical history of hiatal hernia, GERD, rheumatoid arthritis, palpitations, anxiety, hepatic steatosis, iron deficiency anemia from menorrhagia, bladder cancer in her 20s (in remission, s/p surgical resection), chronic
constipation, SIBO, chronic abdominal pain with extensive workup in the past including negative HIDA scan with CCK, capsule endoscopy, colonoscopy August 2024, endoscopy August 2024, CT of the abdomen pelvis with oral and IV contrast 05/2024,
repeat CT scan 05/06/2025 ([facility]), high-resolution manometry in 2018 at [facility], cardiac workup with Dr. Adorno also negative (was due for follow-up appointment today) who presented to the ED with burning epigastric pain, also a
gnawing type epigastric discomfort, worst with solid foods, and a 7lb weight lost in one week.
#Epigastric pain
#Intolerance of solid foods
She follows with Dr. Allison at [facility]. Records from [facility]'s requested.
- Speech consulted, swallow eval completed - no restrictions; low fat low residue diet per GI
- IVF
- GI following,
-- EGD 05/14 - f/u pathology: Telephone GI clinic for pathology results in 5 days.
-- Gastric emptying scan 05/15 showing gastroparesis; f/u recs
-- six small meals LRD diet
-- A1c 4.8
-- OP rheum appt for RA possibly related to nex gastroparesis
-- Continue pantoprazole 40mg PO daily; Pepcid at night
-- Carafate 1g prn up to BID
-- Follow an antireflux regimen
-- No aspirin, ibuprofen, naproxen, or other non-steroidal anti-inflammatory drugs for 5 days after biopsy
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
Na 128 on admission. 135 today. Urine NA and Osm low. Patient reports increased fluid intake r/t decreased food intake. 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
- CTM
#UTI
Dysuria, UAx2 with 1+ leuk est, ketones.
- IV Ceftriaxone 1g 05/14-05/15 - Ur Cltx neg
#Tachycardia, chronic
- Continue verapamil 40mg BID
#Depression
- Continue escitalopram 5mg daily
#Anxiety
- Hydroxyzine 25mg po daily prn
Code status: Full Code
DVT prophylaxis: SCDs
Anticipated Discharge: Within 24 hours
Subjective/Interval History
-
Date of Service: May 16, 2025
- This morning, very upset about dx of gastroparesis. We discussed extensively regarding her questions. C/s Nutrition and reached out to GI to talk to patient and her .
- Ongoing constipation, open to trying S[place] S
- She is tolerating her LRD well but still having GERD and intermittent pains
Objective Data
-
Labs:
Laboratory Results
05/16/25
07:20
WBC 6.7
Hgb 13.4
Hct 38.8
Plt Count 185
Sodium 135
Potassium 3.8
Chloride 104
Carbon Dioxide 25
BUN 3 L
Creatinine 0.5 L
Glucose 88
Calcium 8.9
Total Bilirubin 0.7
AST 21
ALT 16
Alkaline Phosphatase 46
Vital Signs:
Vital Signs
Temp Pulse Resp BP Pulse Ox
97.6 F 84 14 139/89 99
05/16/25 07:52 05/16/25 07:52 05/16/25 07:52 05/16/25 07:52 05/16/25 07:52
I&O
05/15/25 05/16/25 05/17/25
06:59 06:59 06:59
Intake Total 900 / 900 960 / 960
Balance 900 / 900 960 / 960
Physical Exam
-
General: Well Developed, Well Nourished, Comfortable and Conversant
HEENT: Normocephalic, Atraumatic, Moist Mucous Membranes and PERRLA
Respiratory: Clear to Auscultation
Cardiac: Regular Rhythm and S1/S2
GI: Soft, Nondistended, Normal Bowel Sounds and Tender (epigastric region)
Musculoskeletal: No Clubbing, No Cyanosis and No Edema
Skin: Warm and Dry
Neuro: AO x 3
Psych: Calm and Intact Judgement/Insight
[2025-05-16 10:49] LABS: Glycohemoglobin (HgbA1c) 4.8 % (4.0-5.6)
--- NOTE | 2025-05-16 11:36 | W.PN.UPDATE ---
Update Note
Progress Note Update
I saw the patient and evaluated the patient with the resident.
HPI: 49-year-old female with past medical history significant for rheumatoid arthritis, esophageal dysphagia, hiatal hernia, GERD, iron deficiency anemia, tachycardia, Hx bladder cancer; who presented to [facility] ED for evaluation of severe epigastric
pain with heartburn sensation.
She reported that she was seen in [place] 3x last week with no significant findings (patient had CT head and CT AP with no significant findings). She stated there has been no improvement and symptoms have gradually worsened and she sees GI here
at [place] so elected to come for evaluation because GI outpatient workup appoints are too far out.
Symptoms started around 05/04/25 - 05/05/25. She reports a 7 pound weight loss in the past week. PO intake of meals has been minimal, does report an increase in fluids as tolerated. She reports intermittent tachycardia and palpitations.
A/P:
# severe epigastric pain with heartburn sensation, ddx include esophagitis vs known hiatal hernia
less likely cardiac with negative troponin (< 0.012) and EKG unrevealing
s/p EGD 05/14: No gross lesions. Biopsies taken, follow biopsy results with GI outpatient
gastric emptying study confirmed gastroparesis
A1c WNL at 4.8%.
Diet adjusted to six small meals
No aspirin, NSIADs per GI
Per GI, use Protonix 40 mg PO daily, Pepcid at night. OK to start carafate 1 gm once or twice a day for symptoms
Consider erythromycin vs Reglan for gastroparesis Rx. Defer to GI.
Recc outpt Rheum eval for possible rheumatalgic causes of gastroparesis
# hyponatremia likely due to psychogenic polydipsia, resolved
Urine Osm and sodium levels low
Na improved from 128 to 135 with gentle IVF
Follow BMP
# Dysuria, resolved
urine culture with mixed geovanna
DCed ceftriaxone with resolution of symptom
# Intermittent tachycardia per pt, resolved
continue GLASSBLOWER verapamil
Pt describes symptoms of dysautonomia (dizziness with standing, associate with increased HR)
recc outpt card follow up
Monitor HR
# Depression
continue GLASSBLOWER escitalopram
Code status: full code
DVT prophylaxis: Lovenox sq
total time 51 min
--- NOTE | 2025-05-16 12:14 | CM ---
Patient seen at bedside with Han
per note gastric emptying study confirmed gastroparesis
PLAN: Home, no needs anticipated when stable
[2025-05-16] MEDS: MIRALAX 17 GRAMS PO (15:56)
--- NOTE | 2025-05-16 19:06 | W.PN.GI.CBS2 ---
Today's Communication / Plan
-
Chronic upper abdominal symptoms including acid reflux, nausea
Upper endoscopy essentially unremarkable-no evidence of H. pylori or eosinophilic esophagitis
Gastric emptying study showed evidence of gastroparesis with about 18% of gastric contents in the stomach at 4 hours, normal less than 10%. This suggests mild gastroparesis
OK for low fat and low residue diet
Follow an antireflux regimen.
Use Protonix (pantoprazole) 40 mg PO daily. Pepcid at night. OK for carafate 1 gm once or twice a day for symptoms and space it put
from other medication by atleast 2 hours. Pt aware to space it out from other medication by 2 hours and constipation risk
- No aspirin, ibuprofen, naproxen, or other non-steroidal
anti-inflammatory drugs for 5 days after biopsy.
Suggested continuing Linzess for constipation as an outpatient which helps with constipation and bloating as well.
She can f/u with as OP
Will sign off, please call back if needed
Assessment / Plan
-
49-year-old female with past medical history of hiatal hernia, GERD, bladder cancer, rheumatoid arthritis, palpitations, anxiety, hepatic steatosis, iron deficiency anemia from menorrhagia, chronic constipation, SIBO, chronic abdominal pain with
extensive workup in the past including negative HIDA scan with CCK, capsule endoscopy, colonoscopy August 2024, endoscopy August 2024, CT of the abdomen pelvis with oral and IV contrast 05/2024, repeat CT scan 05/06/2025 ([facility]),
high-resolution manometry in 2018 at [place] normal, cardiac workup with Dr. Adorno also negative(was due for follow-up appointment today) who presents to the emergency room with burning epigastric pain, also a gnawing type epigastric discomfort. Worse
with solid foods. She states that she has been pur�eing her foods as this makes her digestion improved. She states that even despite this she still has epigastric discomfort. She states she has pains on both sides just under her rib cage. She
states that water and even liquids are getting stuck in her esophagus. This is also causing her severe pain. Patient with loss of 7 pounds during this week. Presents with hyponatremia. Ketones in urine. Decreased ability to eat.
Impression:
Epigastric pain
Dysphagia/odynophagia
Chronic abdominal pain
Weight loss
Hyponatremia-> resolved
Plan:
Chronic upper abdominal symptoms including acid reflux, nausea
Upper endoscopy essentially unremarkable-no evidence of H. pylori or eosinophilic esophagitis
Gastric emptying study showed evidence of gastroparesis with about 18% of gastric contents in the stomach at 4 hours, normal less than 10%. This suggests mild gastroparesis
OK for low fat and low residue diet
Follow an antireflux regimen.
Use Protonix (pantoprazole) 40 mg PO daily. Pepcid at night. OK for carafate 1 gm once or twice a day for symptoms and space it put
from other medication by atleast 2 hours. Pt aware to space it out from other medication by 2 hours and constipation risk
- No aspirin, ibuprofen, naproxen, or other non-steroidal
anti-inflammatory drugs for 5 days after biopsy.
Suggested continuing Linzess for constipation as an outpatient which helps with constipation and bloating as well.
She can f/u with as OP
Will sign off, please call back if needed
Subjective
Subjective
Date of Service: May 16, 2025
Patient continues to have some nausea and some discomfort in the upper abdomen and sometimes in the right upper quadrant but also has not had bowel movement in a few days. No fevers or chills.
Objective
Data Reviewed
Laboratory Data:
Laboratory Results
05/16/25 07:20
05/16/25 07:20
Laboratory Results
Total Bilirubin 0.7 mg/dl (0.2-1.3) 05/16/25 07:20
AST 21 U/L (14-36) 05/16/25 07:20
ALT 16 U/L (0-35) 05/16/25 07:20
Alkaline Phosphatase 46 U/L (38-126) 05/16/25 07:20
Lipase 99 U/L (23-300) 05/13/25 15:46
Vital Signs and I&O:
Vital Signs
Temp Pulse Resp BP Pulse Ox
97.6 F 84 14 139/89 99
05/16/25 07:52 05/16/25 07:52 05/16/25 07:52 05/16/25 07:52 05/16/25 07:52
I&O
05/15/25 05/16/25 05/17/25
06:59 06:59 06:59
Intake Total 900 / 900 960 / 960 720 / 720
Balance 900 / 900 960 / 960 720 / 720
Physical Exam
Physical Exam
GI: Soft and Non Distended (Some discomfort on palpation in the upper abdomen without guarding or rigidity)
[2025-05-16] MEDS: TYLENOL 650 MG PO (21:27)
[2025-05-16] MEDS: MELATONIN 5 MG PO (21:27)
[2025-05-16] MEDS: PEPCID 20 MG PO (21:27)
[2025-05-16 23:00] VITALS: BP 123/78
[2025-05-17 07:33] VITALS: BP 143/91
[2025-05-17 08:19] LABS: Hematocrit 44.5 % (37.0-47.0); Hemoglobin 14.9 g/dL (12.0-16.0); Mean Corp Hgb Conc. 33.5 g/dL (33.0-37.0); Mean Corpuscular Volume 95.3 fL (81.0-99.0); Nucleated Red Blood Cells % 0 %; Platelet Count 213 10^3/uL (130-400); Red Cell Dist. Width 12.1 % (11.5-14.5)
[2025-05-17 08:28] LABS: ALT (SGPT) 16 U/L (0-35); AST (SGOT) 19 U/L (14-36); Albumin 4.7 g/dl (3.5-5.0); Alkaline Phosphatase 54 U/L (38-126); Blood Urea Nitrogen 5 mg/dl (7-17); Calcium 9.7 mg/dl (8.4-10.2); Carbon Dioxide 30 mmol/L (22-30); Chloride 99 mmol/L (98-107); Estimated Creatinine Clearance 93 ml/min; Glucose 90 mg/dl (70-99); Potassium 3.6 mmol/L (3.5-5.1); Sodium 136 mmol/L (135-145); Total Protein 8.0 g/dl (6.3-8.2); eGFR > 60.00
[2025-05-17 09:36] VITALS: BMI 19.5
[2025-05-17] MEDS: SENOKOT-S 1 TABLET PO (10:13)
[2025-05-17] MEDS: MYCOSTATIN ORAL SUSPENSION 5 ML PO (10:13)
[2025-05-17] MEDS: CARAFATE 1 GRAM PO (10:13)
[2025-05-17] MEDS: MIRALAX 17 GRAMS PO (10:13)
[2025-05-17] MEDS: LEXAPRO 5 MG PO (10:14)
[2025-05-17 10:15] VITALS: BP 158/87
[2025-05-17] MEDS: ISOPTIN 40 MG PO (10:15)
[2025-05-17] MEDS: PROTONIX 40 MG PO (10:16)
[2025-05-17] MEDS: APRESOLINE 5 MG IV (11:00)
--- NOTE | 2025-05-17 11:09 | W.PN.HOSP.TC ---
Today's Communication/Plan
-
1x IV Hydralazine 5mg
dispo today
Assessment / Plan
Assessment / Plan
49-year-old female with past medical history of hiatal hernia, GERD, rheumatoid arthritis, palpitations, anxiety, hepatic steatosis, iron deficiency anemia from menorrhagia, bladder cancer in her 20s (in remission, s/p surgical resection), chronic
constipation, SIBO, chronic abdominal pain with extensive workup in the past including negative HIDA scan with CCK, capsule endoscopy, colonoscopy August 2024, endoscopy August 2024, CT of the abdomen pelvis with oral and IV contrast 05/2024,
repeat CT scan 05/06/2025 ([facility]), [facility], cardiac workup with Dr. Adorno also negative (was due for follow-up appointment today) who presented to the ED with burning epigastric pain, also a
gnawing type epigastric discomfort, worst with solid foods, and a 7lb weight lost in one week.
#Epigastric pain
#Intolerance of solid foods
She follows with Dr. Allison at [facility]. Records from [facility]'s requested.
- Speech consulted, swallow eval completed - no restrictions; low fat low residue diet per GI
- IVF
- GI following,
-- EGD 05/14 - f/u pathology: Telephone GI clinic for pathology results in 5 days.
-- Gastric emptying scan 05/15 showing gastroparesis; f/u recs
-- six small meals low fat, LRD diet
-- A1c 4.8
-- OP rheum appt for RA possibly related to nex gastroparesis
-- Continue pantoprazole 40mg PO daily; Pepcid at night
-- Carafate 1g prn up to BID
-- Follow an antireflux regimen
-- No aspirin, ibuprofen, naproxen, or other non-steroidal anti-inflammatory drugs for 5 days after biopsy
#Benign HTN, resolved
Patient had one time SBP 158. She felt very anxious about this. We discussed multifactorial etiology and following up outpatient.
- CTM
- 1x IV Hydralazine 5mg
- outpatient f/u with cardiology
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
Na 128 on admission. 135 today. Urine NA and Osm low. Patient reports increased fluid intake r/t decreased food intake. 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
- CTM
#UTI
Dysuria, UAx2 with 1+ leuk est, ketones.
- IV Ceftriaxone 1g 05/14-05/15 - Ur Cltx neg
#Tachycardia, chronic
- Continue verapamil 40mg BID
#Depression
- Continue escitalopram 5mg daily
#Anxiety
- Hydroxyzine 25mg po daily prn
Code status: Full Code
DVT prophylaxis: SCDs
Anticipated Discharge: Today
Subjective/Interval History
-
Date of Service: May 17, 2025
- This morning, she's concerned about her BP (SBP 158) and feeling overall dizzy and nervous. 1x IV Hydralazine 5mg given. Nutrition spoke to her, which she found helpful. She is in agreement with discharge plan today
Objective Data
-
Labs:
Laboratory Results
05/17/25
07:46
WBC 6.4
Hgb 14.9
Hct 44.5
Plt Count 213
Sodium 136
Potassium 3.6
Chloride 99
Carbon Dioxide 30
BUN 5 L
Creatinine 0.5 L
Glucose 90
Calcium 9.7
Total Bilirubin 0.7
AST 19
ALT 16
Alkaline Phosphatase 54
Vital Signs:
Vital Signs
Temp Pulse Resp BP Pulse Ox
97.5 F 73 16 158/87 100
05/17/25 07:33 05/17/25 10:15 05/17/25 07:33 05/17/25 10:15 05/17/25 07:33
I&O
05/16/25 05/17/25 05/18/25
06:59 06:59 06:59
Intake Total 960 / 960 2219
Balance 960 / 960 2219
Physical Exam
-
General: Well Developed, Well Nourished, No Apparent Distress and Conversant
HEENT: Normocephalic, Atraumatic, Moist Mucous Membranes and PERRLA
Respiratory: Clear to Auscultation
Cardiac: Regular Rhythm and S1/S2
GI: Soft, Nontender, Nondistended and Normal Bowel Sounds
Musculoskeletal: No Clubbing and No Cyanosis
Skin: Warm and Dry
Neuro: AO x 3
Psych: Calm and Intact Judgement/Insight
--- NOTE | 2025-05-17 11:15 | CM ---
Home no needs.
Plan; Home no needs.
[2025-05-17 12:15] VITALS: BP 143/87
[2025-05-17] MEDS: MYCOSTATIN ORAL SUSPENSION PO (12:15)
--- NOTE | 2025-05-17 12:22 | W.PN.UPDATE ---
Update Note
Progress Note Update
I saw the patient and evaluated the patient with the resident.
HPI: 49-year-old female with past medical history significant for rheumatoid arthritis, esophageal dysphagia, hiatal hernia, GERD, iron deficiency anemia, tachycardia, Hx bladder cancer; who presented to [facility] ED for evaluation of severe epigastric
pain with heartburn sensation.
She reported that she was seen in [place] 3x last week with no significant findings (patient had CT head and CT AP with no significant findings). She stated there has been no improvement and symptoms have gradually worsened and she sees GI here
at [place] so elected to come for evaluation because GI outpatient workup appoints are too far out.
Symptoms started around 05/04/25 - 05/05/25. She reports a 7 pound weight loss in the past week. PO intake of meals has been minimal, does report an increase in fluids as tolerated. She reports intermittent tachycardia and palpitations.
A/P:
# severe epigastric pain with heartburn sensation, ddx include esophagitis vs known hiatal hernia
less likely cardiac with negative troponin (< 0.012) and EKG unrevealing
s/p EGD 05/14: No gross lesions. Biopsies taken, follow biopsy results with GI outpatient
gastric emptying study confirmed gastroparesis
A1c WNL at 4.8%.
Diet adjusted to six small meals
No aspirin, NSIADs per GI
Per GI, use Protonix 40 mg PO daily, Pepcid at night.
Follow up with GI outpt
# hyponatremia likely due to psychogenic polydipsia, resolved
Urine Osm and sodium levels low
Na improved from 128 to 135 with gentle IVF
Follow BMP
# Dysuria, resolved
urine culture with mixed geovanna
DCed ceftriaxone with resolution of dysuria
# Intermittent tachycardia per pt, resolved
continue GEOSPATIAL INTELLIGENCE ANALYST verapamil
Pt describes symptoms of dysautonomia (dizziness with standing, associate with increased HR)
recc outpt card follow up
Monitor HR
# Depression
continue GEOSPATIAL INTELLIGENCE ANALYST escitalopram
Code status: full code
DVT prophylaxis: Lovenox sq
DW RN
Total DC time 40 min
--- NOTE | 2025-05-17 13:07 | PN.CDI ---
CDI
- -
CDI:
Physician Documentation Request
Admit Date: 05/14/25 12:38
Dear Doctor Giana
Patient presented with epigastric pain.
05/16 Progress notes state 'UTI. Dysuria, UAx2 with 1+ leuk est, ketones. IV Ceftriaxone 1g 05/14-05/15 - Ur Cltx neg'
05/17 update note states 'Dysuria resolved. urine with mixed geovanna, DCed ceftriaxone with resolution of dysuria'
Please clarify the following:
____ - UTI was present
____ - UTI was ruled out
____ - Other
Use of terms such as suspected, likely, concern for, or probable (associated with a specific diagnosis that is being evaluated, monitored, or treated as if it exists) are acceptable and can be coded in the inpatient setting, when documented at the
time of discharge.
Thank you,
Jennifer Tomlinson RN, BSN
CDI Specialist
tiger text
Please use your independent medical judgment in providing your response.
--- NOTE | 2025-05-17 16:17 | W.DCSUMMARY ---
Documented by User: Gallito Faria MD, Resident 05/17/25 16:41
Discharge Summary
Discharge Data
Date of Admission: 05/14/25
Date of Discharge: 05/17/25
-
Pending Results: No
Hospital Course
Discharging Physician : Kayleen Enriquez (Chen)
Disposition : Home
Principal Discharge diagnosis : Gastroparesis
Chronic Discharge diagnosis : Hiatal hernia, GERD, rheumatoid arthritis, palpitations, anxiety, hepatic steatosis, iron deficiency anemia from menorrhagia, bladder cancer in her 20s (in remission, s/p surgical resection), chronic constipation,
SIBO, chronic abdominal pain
Hospital Course : Ms. Salazar is a 49-year-old female with past medical history above with extensive workup in the past including negative HIDA scan with CCK, capsule endoscopy, colonoscopy August 2024, endoscopy August 2024, CT of the abdomen
pelvis with oral and IV contrast 05/2024, repeat CT scan 05/06/2025 ([facility]), high-resolution manometry in 2018 at [facility], cardiac workup with Dr. Adorno also negative (was due for follow-up appointment today) who presented to
the ED with burning epigastric pain, also a gnawing type epigastric discomfort, worst with solid foods, and a 7lb weight lost in one week. She follows with Dr. Allison at [facility]. GI and speech were consulted and she was admitted for further workup
and management. EGD on 05/14 as below showed erythematous antral mucosa which was biopsied. She was told to avoid aspirin, ibuprofen, naproxen, or other non-steroids anti-inflammatory drugs for 5 days after biopsy with instructions to telephone GI
clinic for pathology results in 5 days. She was started on Protonix (pantoprazole) 40 mg PO daily and Pepcid at night. Gastric emptying scan on 05/16 revealed gastroparesis. A1c was 4.8 wnl and she was started on low fat, low residue diet with six
small meals/day and nutrition consult for guidance. We also instructed her to follow-up with her instrument designer (new RA dx) in relation with gastroparesis. Her hospital course was complicated by psychogenic polydipsia, which resolved with restricted
fluid intake. She also had ongoing anxiety throughout the course and on top of her lexapro 5mg (started 3 days prior to admission), we added hydroxyzine 25mg prn (dc'd at discharge). She also had one-time SBP of 158, which exacerbated her anxiety
and baseline tachycardia. She was given a one-time IV Hydralazine 5mg for that and guided to follow-up with her handle bar assembler for HTN evaluation as well as continue with outpatient CBT (already follows). Finally, she complained of some dysuria on
05/14 and UAx2 with 1+ leuk est, ketones and was started on IV Ceftriaxone 1g 05/14 but given negative Ur Cltx, it was dc'd 05/15. She was medically stable for discharge on 05/17 on Protonix 40mg BID, Pepcid 20mg qhs, low fat/residue diet with six
small frequent meals/day, and outpatient follow-up with her GI doctor, PCP in less than a week, and rheumatology.
Procedure findings :
NM Gastric Emptying Scan 05/16:
The T1/2 of gastric emptying is elevated at 155 minutes. The normal T1/2 at our facility is 110 minutes or less. At 120 minutes, 63 percent activity remains within the stomach (normal less than 60 percent). At 240 minutes, 18 percent activity
remains within the stomach (normal less that 10 percent).
IMPRESSION:
Scintigraphic findings are consistent with gastroparesis.
EGD 05/15:
Findings:
- No gross lesions were noted in the entire esophagus. Biopsies
were taken with a cold forceps for histology.
- The Z-line was regular and was found 37 cm from the incisors.
- Patchy mildly erythematous mucosa was found in the gastric
antrum. Biopsies were taken with a cold forceps for histology.
- The examined duodenum was normal.
Impression:
- No gross lesions in the entire esophagus. Biopsied.
- Z-line regular, 37 cm from the incisors.
- Erythematous mucosa in the antrum. Biopsied.
- Normal examined duodenum until the 2nd portion.
Recommendation:
- Await pathology results.
- Clear liquid diet and advance as tolerated to low fat and low
residue.
- Follow an antireflux regimen.
- No aspirin, ibuprofen, naproxen, or other non-steroidal
anti-inflammatory drugs for 5 days after biopsy.
- Telephone GI clinic for pathology results in 5 days.
- Return to normal activities tomorrow.
- Use Protonix (pantoprazole) 40 mg PO daily. Pepcid at night. OK to
start carafate 1 gm once or twice a day for symptoms and space it put
from other medication by atleast 2 hours.
Discharge Plan
-
Patient Disposition: Home (Routine Discharge)
Discharge Diagnosis/Procedures: Gastroparesis
Condition: Good
Diet: Low Fat and Low Residue
Additional Diets: small frequent (6 times a day) meals
Activity: No restrictions
Driving Restrictions: As prior to admission
Bathing Restrictions: None
Referrals:
Kinga Allison MD [Active, Gastroenterology] - in one to two weeks
Referral Note: call to make an appointment with your primary GI doctor
Jia Mancini MD [Family Provider, Internal Medicine] - in less than 1 week
Prescriptions:
New
famotidine 20 mg Tablet
20 mg PO HS 30 Days Qty: 30 0RF
pantoprazole 40 mg Tablet,Delayed Release (Dr/Ec)
40 mg PO DAILY 30 Days Qty: 30 0RF
Continued
verapamil 40 mg Tablet
40 mg PO BID
sucralfate [Carafate] 1 gram Tablet
1 g PO BID
escitalopram oxalate [Lexapro] 5 mg Tablet
5 mg PO DAILY
Discharge Orders:
Discharge Patient (As Directed); Ordered 05/17/25
Ordered By: Genie Morel
Discharge Date and Time
Discharge Date/Time: 05/17/25 12:41
Print Language: BOTSWANAN

Documented by User: Genie Morel MD 05/21/25 13:35
Discharge Summary
Discharge Data
Date of Admission: 05/14/25
Date of Discharge: 05/17/25
Hospital Course
Discharging Physician : Kayleen Enriquez (Chen)
Disposition : Home
Principal Discharge diagnosis : Gastroparesis
Chronic Discharge diagnosis : Hiatal hernia, GERD, rheumatoid arthritis, palpitations, anxiety, hepatic steatosis, iron deficiency anemia from menorrhagia, bladder cancer in her 20s (in remission, s/p surgical resection), chronic constipation,
SIBO, chronic abdominal pain
Hospital Course : Ms. Salazar is a 49-year-old female with past medical history above with extensive workup in the past including negative HIDA scan with CCK, capsule endoscopy, colonoscopy August 2024, endoscopy August 2024, CT of the abdomen
pelvis with oral and IV contrast 05/2024, repeat CT scan 05/06/2025 ([facility]), high-resolution manometry in 2018 at [facility], cardiac workup with Dr. Adorno also negative (was due for follow-up appointment today) who presented to
the ED with burning epigastric pain, also a gnawing type epigastric discomfort, worst with solid foods, and a 7lb weight lost in one week. She follows with Dr. Allison at [facility]. GI and speech were consulted and she was admitted for further workup
and management. EGD on 05/14 as below showed erythematous antral mucosa which was biopsied. She was told to avoid aspirin, ibuprofen, naproxen, or other non-steroids anti-inflammatory drugs for 5 days after biopsy with instructions to telephone GI
clinic for pathology results in 5 days. She was started on Protonix (pantoprazole) 40 mg PO daily and Pepcid at night. Gastric emptying scan on 05/16 revealed gastroparesis. A1c was 4.8 wnl and she was started on low fat, low residue diet with six
small meals/day and nutrition consult for guidance. We also instructed her to follow-up with her instrument designer as part of the work up for her gastroparesis diagnosis. Her hospital course was complicated by psychogenic polydipsia, which resolved
with restricted fluid intake. She also had ongoing anxiety throughout the course and on top of her lexapro 5mg (started 3 days prior to admission), we added hydroxyzine 25mg prn (dc'd at discharge). She also had one-time SBP of 158, which
exacerbated her anxiety and baseline tachycardia. She was given a one-time IV Hydralazine 5mg for that and guided to follow-up with her handle bar assembler for HTN evaluation as well as continue with prior to admission verapamil. Finally, she complained of
some dysuria on 05/14 and UAx2 with 1+ leuk est, ketones and was started on IV Ceftriaxone 1g 05/14 but given negative Ur Cltx, it was dc'd 05/15. She was medically stable for discharge on 05/17 on Protonix 40mg BID, Pepcid 20mg qhs, low fat/residue
diet with six small frequent meals/day, and outpatient follow-up with her GI doctor, PCP in less than a week, and rheumatology.
Procedure findings :
NM Gastric Emptying Scan 05/16:
The T1/2 of gastric emptying is elevated at 155 minutes. The normal T1/2 at our facility is 110 minutes or less. At 120 minutes, 63 percent activity remains within the stomach (normal less than 60 percent). At 240 minutes, 18 percent activity
remains within the stomach (normal less that 10 percent).
== END 2025-05-17 12:41 | disposition home or self-care (01) | DRG 392 ==
LOC: 3 WEST ACU 12:38
PROVIDERS: Emergency Medicine; Nurse Practitioner Family; ADMITTING PHYSICIAN Internal Medicine; ATTENDING PHYSICIAN Internal Medicine; CONSULT PHYSICIAN Internal Medicine Gastroenterology; EMERGENCY PHYSICIAN Emergency Medicine; FAMILY PHYSICIAN Internal Medicine
PROC: 0DB68ZX Excision of Stomach, Via Natural or Artificial Opening Endoscopic, Diagnostic (ICD-10-PCS; 2025-05-14)
PROC: 0DB58ZX Excision of Esophagus, Via Natural or Artificial Opening Endoscopic, Diagnostic (ICD-10-PCS; 2025-05-14)
DX: K31.84 Gastroparesis (principal); E87.1 Hypo-osmolality and hyponatremia; N39.0 Urinary tract infection, site not specified; F32.A Depression, unspecified; R00.0 Tachycardia, unspecified; F41.9 Anxiety disorder, unspecified; E11.43 Type 2 diabetes mellitus with diabetic autonomic (poly)neuropathy; I10 Essential (primary) hypertension; K44.9 Diaphragmatic hernia without obstruction or gangrene; K21.9 Gastro-esophageal reflux disease without esophagitis; M06.9 Rheumatoid arthritis, unspecified; Z85.51 Personal history of malignant neoplasm of bladder; K31.89 Other diseases of stomach and duodenum; R10.13 Epigastric pain; G89.29 Other chronic pain; Z79.899 Other long term (current) drug therapy; Z87.891 Personal history of nicotine dependence
CPT/HCPCS: 78264; 80048; 80053; 81003; 81015; 83036; 83690; 83935; 84300; 84443; 84484; 84703; 85025; 85027; 87086; 88305; 88342; 92610; 93005; 96361; 96374; 99285; A9541

== ENCOUNTER 2025-07-22 06:56 | Outpatient (RCR) | payer BC, SELFPAY | END 2025-07-22 23:59 | disposition home or self-care (01) | LOC: RPT 06:56 | PROVIDERS: ATTENDING PHYSICIAN Internal Medicine Gastroenterology; FAMILY PHYSICIAN Internal Medicine | DX: M62.89 Other specified disorders of muscle (principal); Z73.6 Limitation of activities due to disability; R32 Unspecified urinary incontinence; K58.1 Irritable bowel syndrome with constipation; Z85.51 Personal history of malignant neoplasm of bladder | CPT/HCPCS: 97161; 97530 ==